=== PATIENT | female | born 1960 | race African-American/Black ===

== ENCOUNTER 2020-08-17 08:46 | Emergency (ER) | payer OTHER ==
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
== END 2020-08-17 09:45 | disposition home or self-care (01) ==
LOC: JD.ED 08:46
DX: S16.1XXA Strain of muscle, fascia and tendon at neck level, initial encounter (principal); S29.012A Strain of muscle and tendon of back wall of thorax, initial encounter; R51.9 Headache, unspecified; I10 Essential (primary) hypertension; Z79.899 Other long term (current) drug therapy; V43.62XA Car passenger injured in collision with other type car in traffic accident, initial encounter
CPT/HCPCS: 99282; 99283